=== PATIENT | male | born 1965 | race Caucasian/White ===

== ENCOUNTER → 2022-08-14 08:03 | Outpatient (CLI) | payer SELFPAY ==
[2022-08-14 08:56] LABS: Alanine Aminotransferase 35 IU/L (<50); Albumin 3.9 g/dL (3.5-5.0); Albumin Globulin Ratio 1.5 (1.0-2.8); Alkaline Phosphatase 140 U/L (38-126); Aspartate Aminotransferase 23 IU/L (17-59); BUN Creatinine Ratio 26.7 (6-22); Bilirubin Total 0.9 mg/dL (0.2-1.3); Blood Urea Nitrogen 16 mg/dL (9-20); Calcium 9.1 mg/dL (8.4-10.2); Carbon Dioxide 25 mmol/L (22-32); Chloride 94 mmol/L (98-107); Cholesterol 163 mg/dL (140-199); Estimated Glomerular Filt Rate > 60 mL/min (>60); Globulin 2.6 g/dL (1.7-4.1); Glucose 425 mg/dL (70-100); HDL Cholesterol 49 mg/dL (40-60); HEMOLYSIS < 15 (0-50); Potassium 4.7 mmol/L (3.4-5.1); Sodium 130 mmol/L (137-145); Total Protein 6.5 g/dL (6.3-8.2); Triglycerides 422 mg/dL (35-150)
[2022-08-14 10:12] LABS: Creatinine Urine Random 23.9 mg/dL
[2022-08-14 10:16] LABS: Microalbumi Creatinin Ratio Ur 37.6 ug/mg CR (<30); Microalbumin Urine Random 0.9 mg/dL (0-1.6)
[2022-08-15 03:43] LABS: Labcorp Hemoglobin (Hb) A1c >15.5 % (4.8-5.6)
== END ==
PROVIDERS: PCP Family Medicine; Referring Provider Family Medicine; Visit Provider Family Medicine
DX: E11.65 Type 2 diabetes mellitus with hyperglycemia (principal); E78.5 Hyperlipidemia, unspecified
CPT/HCPCS: 36415; 80053; 80061; 82043; 82570; 83036

== ENCOUNTER → 2023-07-02 12:25 | Outpatient (CLI) | payer SELFPAY ==
[2023-07-02 13:06] LABS: Add Manual Diff / Slide Review NO; Basophils Absolute Auto 100 /uL (0-100); Basophils Percent Auto 0.9 % (0-2); Eosinophils Absolute Auto 600 /uL (0-450); Eosinophils Percent Auto 9.2 % (2-4); Hematocrit 44.5 % (41-53); Hemoglobin 15.4 g/dL (13.5-17.5); Lymphocytes Absolute Auto 2000 /uL (1100-4500); Lymphocytes Percent Auto 29.8 % (25-40); Mean Corpuscular HGB Conc 34.5 % (30-36); Mean Corpuscular Hemoglobin 30.2 PG (26-34); Mean Corpuscular Volume 87.5 fL (80-100); Monocytes Absolute Auto 600 /uL (0-900); Monocytes Percent Auto 9.7 % (3-14); Neutrophils Absolute Auto 3300 /uL (1500-7000); Neutrophils Percent Auto 50.4 % (50-75); Platelet Count 334 X10^3/uL (150-400); Red Blood Cell Count 5.09 X10^6/uL (4.5-5.9); White Blood Cell Count 6.6 X10^3/uL (4.5-11.0)
[2023-07-02 13:36] LABS: Alanine Aminotransferase 28 IU/L (<50); Albumin 4.1 g/dL (3.5-5.0); Albumin Globulin Ratio 1.5 (1.0-2.8); Alkaline Phosphatase 67 U/L (38-126); Aspartate Aminotransferase 23 IU/L (17-59); BUN Creatinine Ratio 25.8 (6-22); Bilirubin Total 1.3 mg/dL (0.2-1.3); Blood Urea Nitrogen 17 mg/dL (9-20); Calcium 9.5 mg/dL (8.4-10.2); Carbon Dioxide 27 mmol/L (22-32); Chloride 100 mmol/L (98-107); Cholesterol 124 mg/dL (140-199); Estimated Glomerular Filt Rate > 60 mL/min (>60); Globulin 2.8 g/dL (1.7-4.1); Glucose 217 mg/dL (70-100); HDL Cholesterol 53 mg/dL (40-60); HEMOLYSIS 18 (0-50); LDL Cholesterol Calculated 35 mg/dL (<100); Lipase 199 U/L (23-300); Potassium 4.4 mmol/L (3.4-5.1); Sodium 134 mmol/L (137-145); Total Protein 6.9 g/dL (6.3-8.2); Triglycerides 179 mg/dL (35-150)
[2023-07-02 14:02] LABS: Prostate Specific Antigen Scrn 0.584 ng/mL (0.1-4.0)
[2023-07-02 16:41] LABS: Creatinine Urine Random 50.6 mg/dL
[2023-07-02 16:45] LABS: Microalbumi Creatinin Ratio Ur 25.6 ug/mg CR (<30); Microalbumin Urine Random 1.3 mg/dL (0-1.6)
== END ==
PROVIDERS: PCP Family Medicine; Referring Provider Family Medicine; Visit Provider Family Medicine
DX: R10.9 Unspecified abdominal pain (principal); R07.89 Other chest pain; K59.00 Constipation, unspecified; N40.0 Benign prostatic hyperplasia without lower urinary tract symptoms; E11.65 Type 2 diabetes mellitus with hyperglycemia; Z12.5 Encounter for screening for malignant neoplasm of prostate
CPT/HCPCS: 36415; 80053; 80061; 82043; 82570; 83690; 85025; G0103

== ENCOUNTER → 2023-07-07 07:30 | Outpatient (CLI) | payer SELFPAY ==
--- NOTE | 2023-07-07 07:37 | DI.CT.S_ITS ---
PROCEDURE: CT ABDOMEN PELVIS W CON INDICATIONS: Lt upper quad pain x 3 wks TECHNIQUE: After the administration of intravenous contrast, axial sections acquired from the lung bases to the pubic symphysis. Coronal and sagittal reformats were performed. For radiation dose reduction, the following was used: automated exposure control, adjustment of mA and/or kV according to patient size. COMPARISON: None. FINDINGS: Image quality: Diagnostic. Lower Chest: No significant findings. ABDOMEN: Liver: No solid mass. Gallbladder: No radiopaque gallstones or wall thickening. Biliary ducts: No biliary dilation. Pancreas: No ductal dilation. Spleen: Size is within normal limits. Adrenal Glands: No adrenal nodules. Kidneys and Ureters: No hydronephrosis. No solid mass. No complex renal cystic lesion which requires follow up. Stomach and Bowel: Normal colonic caliber, without significant wall thickening. Large colonic stool load. Fecal debris within the small bowel. Normal appendix. No significant diverticular disease. Peritoneum: No abnormal intraperitoneal fluid. No free air. Ventral Wall: No significant ventral hernia. Small umbilical hernia containing fat. Abdominal Nodes: No retroperitoneal or mesenteric adenopathy by size criteria. Vessels: Aorta and inferior vena cava are normal in size. PELVIS: Pelvic Organs: Unremarkable. Bladder: No bladder wall thickening, accounting for underdistention. Pelvic Nodes: No enlarged lymph nodes. Miscellaneous: Small left inguinal hernia containing fat. Bones: No aggressive osseous abnormality. Grade 1 anterolisthesis of L5 on S1 secondary to pars defects. IMPRESSION: Large colonic stool load. Fecal debris within the small-bowel, usually indicating small intestinal bacterial overgrowth versus slow transit. Grade 1 anterolisthesis of L5 on S1 secondary to pars defects. Dictated by: Josh Robin M.D. on 07/07/2023 at 9:18 Approved by: Josh Robin M.D. on 07/07/2023 at 9:21
== END ==
LOC: CT 07:32
PROVIDERS: PCP Family Medicine; Referring Provider Family Medicine; Visit Provider Family Medicine
DX: M43.17 Spondylolisthesis, lumbosacral region (principal); K40.90 Unilateral inguinal hernia, without obstruction or gangrene, not specified as recurrent; K42.9 Umbilical hernia without obstruction or gangrene; E11.65 Type 2 diabetes mellitus with hyperglycemia; R07.89 Other chest pain; R10.9 Unspecified abdominal pain; K59.00 Constipation, unspecified
CPT/HCPCS: 74177; Q9967

== ENCOUNTER 2023-10-27 09:53 | Day surgery (SDC) | payer OTHER, SELFPAY ==
[2023-10-22 12:21] VITALS: BMI 26.0
--- NOTE | 2023-10-27 | PATH_ITS ---
[facility] Accession Number: [id number] No. of containers..01 Tissue . 01 Material submitted: . flank - MULTIPLE LIPOMAS LEFT FLANK . 01 Diagnosis: SOFT TISSUE, LIPOMAS, LEFT FLANK, EXCISION: Mature adipose tissue, consistent with lipoma. [facility] 10/29/2023 1019 Local . 01 Electronically signed: . Kareen Magaña MD, Pathologist NPI- [id number] . 01 Gross description: . Received in formalin with two patient identifiers and multiple lipomas left flank, are multiple fragments of partially encapsulated yellow lobulated soft tissue aggregating to 6.6 x 4.3 x 2.0 cm. Sectioned to reveal a yellow, soft cut surface with no lesions identified. [employer] sections are submitted in A1-A2. ([id number]) /MRV 10/28/2023 1805 Local . 01 Pathologist provided ICD-10: D17.9 . 01 CPT . 149605 Specimen Comment: A courtesy copy of this report has been sent to [phone] Performed at: [address] [address], [place], [place] [id number] MD David Sweeney MD Phone: [phone]
[2023-10-27 10:22] VITALS: BP 145/93; PULSE 102; RESP 16; TEMP 36.4; O2SAT 100; BMI 26.0
--- NOTE | 2023-10-27 10:40 | PM.PREOP ---
Pre-operative Note COVID-19 COVID-19 status: Not tested Interval Note History & Physical reviewed/Exam performed by Physician: Yes Changes to H&P: No ASA Class (for procedural sedation): III
[2023-10-27] MEDS: LACTATED RINGERS 1,000 ML 42 ML IV (10:43)
[2023-10-27] MEDS: ACETAMINOPHEN 325 MG TABLET 975 MG PO (10:44)
--- NOTE | 2023-10-27 11:34 | SUR.OPER ---
Lateral on a beckham bag, head on pillow, gel axillary roll in place, bottom RIGHT leg bent with gel pad under knee to foot, upper LEFT leg straight and supported with pillows. Upper LEFT arm supported by pillows and secured over bottom RIGHT arm to padded arm board. GENITALIA FREE FROM PRESSURE, Safety belt at hip, tape over blanket lower legs. CONFIRMED BY DR. COOK
[2023-10-27] MEDS: BUPIVACAINE 0.5% (PF) 30 ML VIAL INJ (11:41)
--- NOTE | 2023-10-27 11:48 | PM.OP.1 ---
Operative Date/Time/Diagnoses Date of procedure: 10/27/23 Time of procedure: 11:48 Pre-op diagnosis: Lipomatosis Post-op diagnosis: same Procedure & Clinicians Procedure: Excisional biopsy of 5 lipomas from the left flank Same procedure as scheduled: Yes Surgeon: Rayo West Blending Machine Feeder: Zac Martin Anesthesia Type: General Operative Notes Procedure in detail: Patient was seen in the preoperative holding area and the 5 lipomas from his left flank were identified and marked. The patient was then brought to the operating room and placed on the table in the supine position. General anesthesia was induced. The patient was then positioned in the right lateral decubitus position with the left side up. We made 3 incisions ranging from 3 cm to 5 cm to reach the 5 different lipomas several of which reached down to the underlying muscle fascia. The subcutaneous adipose tissue was rather lobular and multiple fibrotic septations were encountered. The 5 identified lipomas were excised and sent together. Cautery was used for hemostasis. Additional local was injected into the deep tissue and into the muscle fascia. We then closed the 3 incisions in layers using multiple interrupted 3-0 Vicryl dermal sutures and a running 4-0 Monocryl subcuticular stitch. EBL: 10 mL Specimen: Multiple left flank lipomas Zac GREEN provided assistance with exposure, retraction and closure of incisions. Post-operative Condition: stable Disposition: PACU
[2023-10-27 12:05] VITALS: BP 126/90; PULSE 85; RESP 12; TEMP 36.4; O2SAT 97
[2023-10-27 12:11] VITALS: BP 117/85; PULSE 86; RESP 13; TEMP 36.4; O2SAT 96
[2023-10-27 12:17] VITALS: BP 107/83; PULSE 90; RESP 12; TEMP 36.3; O2SAT 96
== END 2023-10-27 12:33 | disposition home or self-care (01) ==
PROVIDERS: PCP Family Medicine; Referring Provider Surgery; Visit Provider Surgery
PROC: (CPT 21931; principal; 2023-10-27 11:15)
DX: D17.1 Benign lipomatous neoplasm of skin and subcutaneous tissue of trunk (principal)
CPT/HCPCS: 21931 ×3; J1100; J2405; J2704; J3010

== ENCOUNTER → 2024-02-17 09:53 | Outpatient (CLI) | payer OTHER, SELFPAY ==
[2024-02-17 11:31] LABS: Hemoglobin A1C% w Est Avg Glu 6.7 % (4.0-6.0)
== END ==
PROVIDERS: PCP Family Medicine; Referring Provider Family Medicine; Visit Provider Family Medicine
DX: E11.65 Type 2 diabetes mellitus with hyperglycemia (principal); D17.9 Benign lipomatous neoplasm, unspecified; R20.2 Paresthesia of skin; E11.319 Type 2 diabetes mellitus with unspecified diabetic retinopathy without macular edema; E11.43 Type 2 diabetes mellitus with diabetic autonomic (poly)neuropathy
CPT/HCPCS: 36415; 83036

== ENCOUNTER 2024-04-20 10:18 | Emergency (ER) | payer OTHER, SELFPAY ==
[2024-04-20] VITALS (17 sets, daily range): BP systolic 151–176; BP diastolic 78–114; PULSE 89–131; RESP 13–32; TEMP 36.8; O2SAT 92–100; BMI 27.1
[2024-04-20] MEDS: ONDANSETRON 4 MG/2 ML INJ IV (10:32)
--- NOTE | 2024-04-20 10:36 | EKG_ITS ---
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
[2024-04-20 10:39] LABS: Add Manual Diff / Slide Review NO; Basophils Absolute Auto 0 /uL (0-100); Basophils Percent Auto 0.2 % (0-2); Eosinophils Absolute Auto 0 /uL (0-450); Hematocrit 47.1 % (41-53); Hemoglobin 16.5 g/dL (13.5-17.5); Lymphocytes Absolute Auto 1100 /uL (1100-4500); Lymphocytes Percent Auto 8.8 % (25-40); Mean Corpuscular HGB Conc 35.1 % (30-36); Mean Corpuscular Volume 88.2 fL (80-100); Monocytes Absolute Auto 1100 /uL (0-900); Monocytes Percent Auto 8.9 % (3-14); Neutrophils Absolute Auto 10000 /uL (1500-7000); Neutrophils Percent Auto 82.1 % (50-75); Platelet Count 367 X10^3/uL (150-400); Red Blood Cell Count 5.34 X10^6/uL (4.5-5.9); Red Cell Distribution Width 13.1 % (11.6-14.8); White Blood Cell Count 12.1 X10^3/uL (4.5-11.0)
[2024-04-20 10:46] LABS: Alanine Aminotransferase 41 IU/L (<50); Albumin 5.2 g/dL (3.5-5.0); Albumin Globulin Ratio 1.6 (1.0-2.8); Alkaline Phosphatase 72 U/L (38-126); Aspartate Aminotransferase 39 IU/L (17-59); BUN Creatinine Ratio 22.9 (6-22); Bilirubin Total 1.9 mg/dL (0.2-1.3); Blood Urea Nitrogen 16 mg/dL (9-20); Calcium 9.7 mg/dL (8.4-10.2); Carbon Dioxide 25 mmol/L (22-32); Chloride 91 mmol/L (98-107); Estimated Glomerular Filt Rate > 60 mL/min (>60); Globulin 3.2 g/dL (1.7-4.1); Glucose 265 mg/dL (70-100); HEMOLYSIS < 15 (0-50); Lipase 32 U/L (23-300); Potassium 3.6 mmol/L (3.4-5.1); Sodium 133 mmol/L (137-145); Total Protein 8.4 g/dL (6.3-8.2)
--- NOTE | 2024-04-20 10:59 | DI.CT.S_ITS ---
PROCEDURE: CT ABDOMEN PELVIS W CON INDICATIONS: IV contrast only, abdominal pain TECHNIQUE: After the administration of intravenous contrast, axial sections acquired from the lung bases to the pubic symphysis. Coronal and sagittal reformats were performed. For radiation dose reduction, the following was used: automated exposure control, adjustment of mA and/or kV according to patient size. COMPARISON: [facility], CT, CT ABDOMEN PELVIS W CON, 07/07/2023, 8:45. FINDINGS: Image quality: Diagnostic. Lower Chest: No significant findings. ABDOMEN: Liver: No solid mass. Gallbladder: No radiopaque gallstones or wall thickening. Biliary ducts: No biliary dilation. Pancreas: No ductal dilation. Spleen: Size is within normal limits. Adrenal Glands: No adrenal nodules. Kidneys and Ureters: No hydronephrosis. No solid mass. No complex renal cystic lesion which requires follow up. Stomach and Bowel: Normal colonic caliber, without significant wall thickening. Diverticulosis without evidence of acute diverticulitis. Normal appendix. Peritoneum: No abnormal intraperitoneal fluid. No free air. Ventral Wall: No significant ventral hernia. Abdominal Nodes: No retroperitoneal or mesenteric adenopathy by size criteria. Vessels: Aorta and inferior vena cava are normal in size. PELVIS: Pelvic Organs: Prostatomegaly.. Bladder: No bladder wall thickening, accounting for underdistention. Pelvic Nodes: No enlarged lymph nodes. Miscellaneous: Small fat containing left inguinal hernia. Bones: No aggressive osseous abnormality. Bilateral L5 pars defects, trace anterolisthesis of L5 on S1, bilateral foraminal narrowing with a degree of bilateral foraminal L5 nerve root impingement. IMPRESSION: 1. No acute abdominal process. 2. Diverticulosis without evidence of acute diverticulitis. 3. Prostatomegaly. Dictated by: Noman Zepeda M.D. on 04/20/2024 at 11:56 Approved by: Noman Zepeda M.D. on 04/20/2024 at 12:05
--- NOTE | 2024-04-20 11:09 | ED.NAVMDI ---
HPI - Nausea/Vomiting/Diarrhea General Chief complaint: Nausea/Vomiting/Diarrhea Stated complaint: Hasn't ate for 3-4 days, throwing up, dry heaving Time Seen by Provider: 04/20/24 10:55 Source: patient Mode of arrival: Ambulatory History of Present Illness HPI Narrative: Patient here for ongoing chronic abdominal pain nausea vomiting diarrhea for many months. Patient just saw his provider Dr. Maravilla April 07. Please see his notes regarding extensive discussion with patient regarding his multiple problems symptoms complaints. He has appointment today at 5:30 p.m. with for MRI. Mother drove patient today. Patient is very anxious. No fever chills. No cough cold or congestion. No known sick contacts. Related Data Previous Rx's Medication Instructions Recorded atorvastatin 40 mg tablet 40 mg PO DAILY cholesterol #90 tabs 11/25/23 blood sugar diagnostic #100 ea 11/25/23 blood-glucose meter #1 ea 11/25/23 glipizide 10 mg tablet, extended 10 mg PO DAILY #90 tabs 11/25/23 release 24 hr insulin glargine-yfgn 100 unit/mL 20 unit (0.2 mL) SUBCUT DAILY #15 11/25/23 (3 mL) subcutaneous pen (Semglee mL (insulin glargine-yfgn) Pen) insulin syr/ndl U100 half talia 0.3 #100 ea 11/25/23 mL 29 gauge x 1/2 lancets 28 gauge #100 ea 11/25/23 lisinopril 2.5 mg tablet 2.5 mg PO DAILY #90 tabs 11/25/23 metformin 1,000 mg tablet 1,000 mg PO BID #180 tabs 11/25/23 pen needle, diabetic 29 gauge x #100 ea 11/25/23 1/2 (Comfort EZ Pen [place]) pregabalin 150 mg capsule (Lyrica) 150 mg PO BID #60 caps 02/15/24 tramadol 50 mg tablet 50 mg PO Q6H PRN pain #120 tabs 02/15/24 pioglitazone 15 mg tablet 15 mg PO DAILY for diabetes 02/29/24 mellitus #90 tabs ondansetron 4 mg disintegrating 4 mg PO Q8H PRN nausea and 04/20/24 tablet vomiting #20 tabs Allergies Allergy/AdvReac Type Severity Reaction Status Date / Time No Known Drug Allergies Allergy Verified 04/20/24 10:28 Review of Systems Review of Systems Narrative: GENERAL: Negative chills, fatigue, malaise, fever, sweats. HEENT: Negative sinus pain, ear pain, sore throat RESPIRATORY: Negative dyspnea, cough CARDIOVASCULAR: Negative chest pain, palpitations GASTROINTESTINAL: Positive nausea, vomiting, abdominal pain : Negative dysuria, frequency, hematuria MUSCULOSKELETAL: Negative muscle or bony pain SKIN: Negative rash, skin lesions NEUROLOGIC: Negative weakness, numbness ROS Unobtainable: All systems reviewed & are unremarkable except as noted in HPI and below Patient History Medical History (Updated 04/20/24 @ 13:57 by Meet Bosch MD) Diabetic retinopathy Peripheral autonomic neuropathy due to DM Hyperlipidemia Type 2 diabetes mellitus with hyperglycemia, without long-term current use of insulin Social History household members: none Smoking Status: Former smoker alcohol intake: never Smoking Status: Former smoker Exam Narrative Exam Narrative: GENERAL: in no distress, not toxic not dyspneic HEAD: Normocephalic. EYES: Pupils equal round ENT: Mucous membranes moist. NECK: Trachea midline. CARDIOVASCULAR: Regular rate and rhythm RESPIRATORY: Clear to auscultation. Breath sounds equal bilaterally. No wheezes, rales, or rhonchi. GASTROINTESTINAL: Abdomen soft, non-tender with patient talking very rapidly exam of abdomen is soft flat nontender no peritoneal signs no guarding or rebound. Leans forward during exam there is no CVA tenderness. EXTREMITIES: No gross deformities. BACK: No flank tenderness. NEURO: AOx4. SKIN: Warm and dry PSYCH: Pressured rapid speech, needs redirecting during conversation, is anxious, is cooperative Initial Vital Signs Initial Vital Signs: Vital Signs Temperature 98.3 F 04/20/24 10:19 Pulse Rate 114 H 04/20/24 10:19 Respiratory Rate 16 04/20/24 10:19 Blood Pressure 176/104 H 04/20/24 10:19 Pulse Oximetry 98 04/20/24 10:19 Oxygen Delivery Method Room Air 04/20/24 10:19 Course Orders Ordered: ED Orders 04/20/24 10:25 Complete Blood Count AUTO DIFF Stat Comprehensive Metabolic Panel Stat Hemoglobin A1C% w Est Avg Glu Stat Ketones (Beta-Hydroxybutyrate) Stat Lipase Stat 04/20/24 10:27 EKG-12 Lead Stat 04/20/24 10:59 CT abdomen pelvis w con Stat 04/20/24 11:03 Covid-19 + FLU A/B + RSV - PCR Stat 04/20/24 13:18 Ketones (Beta-Hydroxybutyrate) Stat 04/20/24 14:59 CMP [Comprehensive Metabolic Panel] Stat 04/20/24 15:40 Urine Microscopic Stat Ondansetron HCl (Ondansetron 4 Mg/2 Ml Inj) 4 mg IV NOW PRN PRN Reason: Nausea And Vomiting Last Admin: 04/20/24 10:32 Dose: 4 mg Documented By: AMPARO Ondansetron HCl (Ondansetron 4 Mg Odt) 4 mg PO NOW PRN PRN Reason: Nausea And Vomiting Discontinued Medications Sodium Chloride (Normal Saline 0.9%) 1,000 mls @ 1,000 mls/hr IV BOLUS ONE Stop: 04/20/24 11:57 Last Infusion: 04/20/24 13:05 Dose: Infused Documented By: Admin: 04/20/24 11:24 Dose: 1,000 mls/hr Documented By: SUYAPA Sodium Chloride (Normal Saline 0.9%) 1,000 mls @ 1,000 mls/hr IV BOLUS ONE Stop: 04/20/24 12:51 Last Infusion: 04/20/24 13:20 Dose: Infused Documented By: Admin: 04/20/24 13:08 Dose: 1,000 mls/hr Documented By: SUYAPA Morphine Sulfate (Morphine 4 Mg/Ml Inj) 4 mg IV NOW ONE Stop: 04/20/24 11:09 Last Admin: 04/20/24 11:22 Dose: 4 mg Documented By: SUYAPA Morphine Sulfate (Morphine 4 Mg/Ml Inj) 4 mg IV NOW ONE Stop: 04/20/24 12:55 Last Admin: 04/20/24 13:07 Dose: 4 mg Documented By: SUYAPA Vital Signs Vital signs: Vital Signs - 8 hr 04/20/24 10:19 04/20/24 10:23 04/20/24 10:24 Temperature 98.3 F Pulse Rate 114 H 119 H 116 H Respiratory Rate 16 Blood Pressure 176/104 H Pulse Oximetry 98 98 99 Oxygen Delivery Method Room Air 04/20/24 10:24 04/20/24 10:30 04/20/24 10:30 Temperature Pulse Rate 112 H Respiratory Rate 16 Blood Pressure 176/104 H 163/96 H Pulse Oximetry 99 Oxygen Delivery Method 04/20/24 11:00 04/20/24 11:01 04/20/24 11:01 Temperature Pulse Rate 118 H 131 H Respiratory Rate 32 H 32 H Blood Pressure 157/114 H Pulse Oximetry 98 96 Oxygen Delivery Method 04/20/24 11:42 04/20/24 12:00 04/20/24 12:30 Temperature Pulse Rate 101 H 103 H 98 H Respiratory Rate 31 H 25 H Blood Pressure Pulse Oximetry 100 99 Oxygen Delivery Method 04/20/24 13:00 04/20/24 13:30 04/20/24 14:00 Temperature Pulse Rate 91 H 109 H 101 H Respiratory Rate 30 H 20 22 Blood Pressure Pulse Oximetry 92 99 99 Oxygen Delivery Method 04/20/24 14:30 04/20/24 14:30 04/20/24 15:00 Temperature Pulse Rate 106 H 96 H Respiratory Rate Blood Pressure 151/78 H Pulse Oximetry 99 100 Oxygen Delivery Method Room Air 04/20/24 15:00 04/20/24 15:30 04/20/24 15:30 Temperature Pulse Rate 106 H Respiratory Rate 13 Blood Pressure 167/88 H 172/82 H Pulse Oximetry 98 Oxygen Delivery Method 04/20/24 16:00 04/20/24 16:00 04/20/24 16:30 Temperature Pulse Rate 89 91 H Respiratory Rate Blood Pressure 161/86 H Pulse Oximetry 100 99 Oxygen Delivery Method 04/20/24 16:30 Temperature Pulse Rate Respiratory Rate Blood Pressure 167/94 H Pulse Oximetry Oxygen Delivery Method MDM - Nausea/Vomiting/Diarrhea Lab Data 04/20/24 10:25 04/20/24 14:59 Labs: Lab Results 04/20/24 04/20/24 04/20/24 Range/Units 10:25 11:03 13:18 WBC 12.1 H (4.5-11.0) X10^3/uL RBC 5.34 (4.5-5.9) X10^6/uL Hgb 16.5 (13.5-17.5) g/dL Hct 47.1 (41-53) % MCV 88.2 (80-100) fL MCH 31.0 (26-34) PG MCHC 35.1 (30-36) % RDW 13.1 (11.6-14.8) % Plt Count 367 (150-400) X10^3/uL Neut % (Auto) 82.1 H (50-75) % Lymph % (Auto) 8.8 L (25-40) % [place] % (Auto) 8.9 (3-14) % Eos % (Auto) 0.0 L (2-4) % Baso % (Auto) 0.2 (0-2) % Neut # (Auto) 99239 H (9348-3407) /uL Lymph # (Auto) 1100 (3332-2982) /uL [place] # (Auto) 1100 H (0-900) /uL Eos # (Auto) 0 (0-450) /uL Baso # (Auto) 0 (0-100) /uL Sodium 133 L (137-145) mmol/L Potassium 3.6 (3.4-5.1) mmol/L Chloride 91 L (98-107) mmol/L Carbon Dioxide 25 (22-32) mmol/L BUN 16 (9-20) mg/dL Creatinine 0.70 (0.66-1.25) mg/dL Estimated GFR > 60 (>60) mL/min BUN/Creatinine Ratio 22.9 H (6-22) Glucose 265 H (70-100) mg/dL Hemoglobin A1c 6.8 H (4.0-6.0) % Calcium 9.7 (8.4-10.2) mg/dL Total Bilirubin 1.9 H (0.2-1.3) mg/dL AST 39 (17-59) IU/L ALT 41 (<50) IU/L Alkaline Phosphatase 72 (38-126) U/L Total Protein 8.4 H (6.3-8.2) g/dL Albumin 5.2 H (3.5-5.0) g/dL Globulin 3.2 (1.7-4.1) g/dL Albumin/Globulin Ratio 1.6 (1.0-2.8) Lipase 32 (23-300) U/L Urine RBC (0-5/HPF) Urine WBC (0-5/HPF) Ur Squamous Epith Cells (0-5/HPF) Urine Bacteria (None) Ur Culture Indicated? Vol Urine Centrifuged Ketones 2.05 H 1.25 H (<0.27) mmol/L SARS-CoV-2 (PCR) Negative (Negative) Influenza A (RT-PCR) Flu a negative (NEGATIVE) Influenza B (RT-PCR) Flu b negative (NEGATIVE) RSV (PCR) Negative (Negative) 04/20/24 04/20/24 Range/Units 14:59 15:40 WBC (4.5-11.0) X10^3/uL RBC (4.5-5.9) X10^6/uL Hgb (13.5-17.5) g/dL Hct (41-53) % MCV (80-100) fL MCH (26-34) PG MCHC (30-36) % RDW (11.6-14.8) % Plt Count (150-400) X10^3/uL Neut % (Auto) (50-75) % Lymph % (Auto) (25-40) % [place] % (Auto) (3-14) % Eos % (Auto) (2-4) % Baso % (Auto) (0-2) % Neut # (Auto) (3333-7206) /uL Lymph # (Auto) (2345-9692) /uL [place] # (Auto) (0-900) /uL Eos # (Auto) (0-450) /uL Baso # (Auto) (0-100) /uL Sodium 132 L (137-145) mmol/L Potassium 3.9 (3.4-5.1) mmol/L Chloride 99 (98-107) mmol/L Carbon Dioxide 26 (22-32) mmol/L BUN 14 (9-20) mg/dL Creatinine 0.67 (0.66-1.25) mg/dL Estimated GFR > 60 (>60) mL/min BUN/Creatinine Ratio 20.9 (6-22) Glucose 189 H (70-100) mg/dL Hemoglobin A1c (4.0-6.0) % Calcium 8.8 (8.4-10.2) mg/dL Total Bilirubin 1.5 H (0.2-1.3) mg/dL AST 21 (17-59) IU/L ALT 20 (<50) IU/L Alkaline Phosphatase 60 (38-126) U/L Total Protein 6.7 (6.3-8.2) g/dL Albumin 4.1 (3.5-5.0) g/dL Globulin 2.6 (1.7-4.1) g/dL Albumin/Globulin Ratio 1.6 (1.0-2.8) Lipase (23-300) U/L Urine RBC None seen (0-5/HPF) Urine WBC None seen (0-5/HPF) Ur Squamous Epith Cells None seen (0-5/HPF) Urine Bacteria Occasional (0-1) (None) Ur Culture Indicated? Cult not indicated Vol Urine Centrifuged 10ml (spun) Ketones (<0.27) mmol/L SARS-CoV-2 (PCR) (Negative) Influenza A (RT-PCR) (NEGATIVE) Influenza B (RT-PCR) (NEGATIVE) RSV (PCR) (Negative) Point of Care Testing Glucose POC 274 Urine Dip Bedside Urine Glucose Negative Bedside Urine Bilirubin - Negative Bedside Urine Ketone +++ 80 Urine Specific [place] 1.005 Bedside Urine Occult Blood - Negative Bedside Urine pH 7.5 Bedside Urine Protein +/- 15 Bedside Urine Urobilinogen - Negative Bedside Urine Nitrite - Negative Bedside Urine Leukocytes - Negative Esterase Imaging Data CT scan - abdomen/pelvis: Radiologist's Impression: [address] [address] [address] Scan Report Signed Patient: Riky Cross II MR#: [id number] : 1965 Acct:[id number] Age/Sex: 58 / M Date of Service: 04/20/24 Loc: ED Accession Number: [id number] Procedure: CT abdomen pelvis w con Ordering Provider: Meet Bosch MD PROCEDURE: CT ABDOMEN PELVIS W CON INDICATIONS: IV contrast only, abdominal pain TECHNIQUE: After the administration of intravenous contrast, axial sections acquired from the lung bases to the pubic symphysis. Coronal and sagittal reformats were performed. For radiation dose reduction, the following was used: automated exposure control, adjustment of mA and/or kV according to patient size. COMPARISON: [facility], CT, CT ABDOMEN PELVIS W CON, 07/07/2023, 8:45. FINDINGS: Image quality: Diagnostic. Lower Chest: No significant findings. ABDOMEN: Liver: No solid mass. Gallbladder: No radiopaque gallstones or wall thickening. Biliary ducts: No biliary dilation. Pancreas: No ductal dilation. Spleen: Size is within normal limits. Adrenal Glands: No adrenal nodules. Kidneys and Ureters: No hydronephrosis. No solid mass. No complex renal cystic lesion which requires follow up. Stomach and Bowel: Normal colonic caliber, without significant wall thickening. Diverticulosis without evidence of acute diverticulitis. Normal appendix. Peritoneum: No abnormal intraperitoneal fluid. No free air. Ventral Wall: No significant ventral hernia. Abdominal Nodes: No retroperitoneal or mesenteric adenopathy by size criteria. Vessels: Aorta and inferior vena cava are normal in size. PELVIS: Pelvic Organs: Prostatomegaly.. Bladder: No bladder wall thickening, accounting for underdistention. Pelvic Nodes: No enlarged lymph nodes. Miscellaneous: Small fat containing left inguinal hernia. Bones: No aggressive osseous abnormality. Bilateral L5 pars defects, trace anterolisthesis of L5 on S1, bilateral foraminal narrowing with a degree of bilateral foraminal L5 nerve root impingement. IMPRESSION: 1. No acute abdominal process. 2. Diverticulosis without evidence of acute diverticulitis. 3. Prostatomegaly. Dictated by: Noman Zpeeda M.D. on 04/20/2024 at 11:56 Approved by: Noman Zepeda M.D. on 04/20/2024 at 12:05 [facility] Narrative Medical decision making narrative: Patient here for ongoing chronic abdominal pain nausea vomiting diarrhea for many months. Patient just saw his provider Dr. Maravilla April 07. Please see his notes regarding extensive discussion with patient regarding his multiple problems symptoms complaints. He has appointment today at 5:30 p.m. with for MRI. Mother drove patient today. Patient is very anxious. No fever chills. No cough cold or congestion. No known sick contacts. After history and exam CBC CMP lipase respiratory panel CT abdomen pelvis normal saline morphine Zofran, EKG ordered, no troponin is patient has no chest pain or dyspnea. [facility] Medical records reviewed: Primary care office visit April 07, 2024 Differential considered: Includes but not limited to pancreatitis bowel obstruction colitis cholelithiasis IBS anxiety DKA dehydration Lab Test results independently reviewed as above. Pertinent findings: WBC 12.1 hemoglobin 16.5 sodium 133 potassium 3.6 BUN 16 creatinine 0.7 AST 239 ALT 41 total bilirubin 1.9 lipase 32 Hemoglobin A1c 6.8 glucose 265 Ketones 2.05 repeat ketones 1.25 Repeat CMP sodium 132 potassium 3.9 bicarb 26 BUN 14 creatinine 0.67 Anion gap 7.0 at time of discharge. Independently reviewed EKG sinus tachycardia rate 102 otherwise normal EKG Imaging studies independently reviewed: CT abdomen pelvis no acute finding Consultations: None indicated at this time Treatments: Morphine Zofran normal saline Re-evaluations: 5:00 p.m. Patient feeling much better. 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 Reviewed results with patient but they are reassuring at this time. Patient has outpatient MRI today at 5:30 p.m.. Return precautions reviewed. He desires discharge home. Patient up and walking without difficulty. No ataxia. Pain-free. Discussion: Appropriate for discharge home exam is reassuring. Return precautions reviewed with patient. These symptoms have been going on for many months. Today's results are reassuring. He does have a emergency detail driver. He desires discharge home. Not toxic at discharge. Patient feeling much better with IV hydration pain control and nausea control. He has MRI at 5:30 p.m. and 30 minutes. Diagnosis: Chronic abdominal pain, recurrent vomiting Discharge Plan Departure Patient Disposition: Home Clinical Impression: Vomiting and diarrhea, Abdominal pain, recurrent Instructions: DI for Abdominal Pain-Adult, DI for Vomiting -- Adult Activity Restrictions/Additional Instructions: Your exam and laboratory studies imaging studies are reassuring. Please get your MRI done today as scheduled at 5:30 p.m.. See your family doctor within a week for re-evaluation. No changes to your medications are indicated at this time. Your laboratory studies imaging studies are reassuring. No driving or operating machinery today as you have been given pain medication. Return if worse if any questions or concerns Prescriptions: New ondansetron 4 mg tablet,disintegrating 4 mg PO Q8H PRN (Reason: nausea and vomiting) Qty: 20 0RF No Action (DME) pen needle, diabetic [Comfort EZ Pen [place]] 29 gauge x 1/2 needle See Rx Instructions .Route Qty: 100 11RF Rx Instructions: use to administer insulin up to 4 times a day metformin 1,000 mg tablet 1,000 mg PO BID Qty: 180 1RF lisinopril 2.5 mg tablet 2.5 mg PO DAILY Qty: 90 3RF (DME) lancets 28 gauge misc See Rx Instructions .ROUTE .MEDSUPPLY Qty: 100 3RF Rx Instructions: As directed, once daily as neededd (DME) insulin syr/ndl U100 half talia 0.3 mL 29 gauge x 1/2 syringe See Rx Instructions .ROUTE .MEDSUPPLY Qty: 100 3RF Rx Instructions: inject insulin daily, As directed insulin glargine-yfgn [Semglee(insulin glarg-yfgn)Pen] 100 unit/mL (3 mL) insulin pen 20 unit SUBCUT DAILY Qty: 15 3RF Rx Instructions: 20 units nightly glipizide 10 mg tablet extended release 24hr 10 mg PO DAILY Qty: 90 3RF (DME) blood-glucose meter Misc See Rx Instructions .ROUTE .MEDSUPPLY Qty: 1 0RF Rx Instructions: As directed, once daily as needed (DME) Advocate Test Strips Strip See Rx Instructions .ROUTE .MEDSUPPLY Qty: 100 3RF Rx Instructions: As directed, once daily as needed atorvastatin 40 mg tablet 40 mg PO DAILY Qty: 90 3RF pioglitazone 15 mg tablet 15 mg PO DAILY Qty: 90 3RF tramadol 50 mg tablet 50 mg PO Q6H PRN (Reason: pain) Qty: 120 5RF Rx Instructions: to last 30 days pregabalin [Lyrica] 150 mg capsule 150 mg PO BID Qty: 60 5RF Referrals: Andrés Maravilla DO [Primary Care Provider] - Stand Alone Forms: Patient Portal/API/Survey
[2024-04-20 11:15] LABS: Hemoglobin A1C% w Est Avg Glu 6.8 % (4.0-6.0)
[2024-04-20 11:19] LABS: Ketones (Beta-Hydroxybutyrate) 2.05 mmol/L (<0.27)
[2024-04-20] MEDS: MORPHINE 4 MG/ML INJ IV ×2 (11:22→13:07)
[2024-04-20] MEDS: SODIUM CHLORIDE 0.9% 1,000 ML 1000 ML IV ×2 (11:24→13:08)
[2024-04-20 11:45] LABS: COVID-19 CEPHEID 4-PLEX PCR Negative (Negative); Influenza A - CEPHEID Flu A NEGATIVE (NEGATIVE); Influenza B - CEPHEID Flu B NEGATIVE (NEGATIVE); Respiratory Syncytial Virus Negative (Negative)
[2024-04-20 14:26] LABS: Ketones (Beta-Hydroxybutyrate) 1.25 mmol/L (<0.27)
--- NOTE | 2024-04-20 14:32 | PC.NURSE ---
Patient here in department for n/v for four days, patient also reports that he is very concerned about several lipomas that he has. He has been to see his PCP who reports they are nothing of concern, Dr West removed several of his lipomas and also agreed that they are benign. Patient is reports that he has pain in the areas with lipomas, Dr Bosch ordered analgesics see MAY. Patient states that his pain has remained the same. Patient is very anxious. outpatient MRI scheduled for 1729 today.
[2024-04-20 15:20] LABS: Alanine Aminotransferase 20 IU/L (<50); Albumin 4.1 g/dL (3.5-5.0); Albumin Globulin Ratio 1.6 (1.0-2.8); Alkaline Phosphatase 60 U/L (38-126); Aspartate Aminotransferase 21 IU/L (17-59); BUN Creatinine Ratio 20.9 (6-22); Bilirubin Total 1.5 mg/dL (0.2-1.3); Blood Urea Nitrogen 14 mg/dL (9-20); Calcium 8.8 mg/dL (8.4-10.2); Carbon Dioxide 26 mmol/L (22-32); Chloride 99 mmol/L (98-107); Estimated Glomerular Filt Rate > 60 mL/min (>60); Globulin 2.6 g/dL (1.7-4.1); Glucose 189 mg/dL (70-100); HEMOLYSIS < 15 (0-50); Potassium 3.9 mmol/L (3.4-5.1); Sodium 132 mmol/L (137-145); Total Protein 6.7 g/dL (6.3-8.2)
[2024-04-20 15:54] LABS: Urine Volume 10mL (spun)
[2024-04-20 15:56] LABS: Bacteria Urine Occasional (0-1); Culture Indicated Urine Cult Not Indicated; RBC Urine None Seen (0-5/HPF); Squamous Epithelial Cell Urine None Seen (0-5/HPF); WBC Urine None Seen (0-5/HPF)
== END 2024-04-20 17:01 | disposition home or self-care (01) ==
PROVIDERS: Emergency Provider Emergency Medicine; PCP Family Medicine
DX: R11.2 Nausea with vomiting, unspecified (principal); R10.9 Unspecified abdominal pain; R19.7 Diarrhea, unspecified; E88.2 Lipomatosis, not elsewhere classified
CPT/HCPCS: 0241U; 36415; 74177; 74183; 80053; 81003; 81015; 82009; 83036; 83690; 85025; 93005; 96361; 96374; 96375; 96376; 99284; A9579; J2270; J2405; Q9967

== ENCOUNTER → 2024-04-20 17:01 | Outpatient (CLI) | payer OTHER, SELFPAY ==
--- NOTE | 2024-04-20 17:03 | DI.MRI.S_ITS ---
PROCEDURE: MR ABDOMEN WO/W CON INDICATIONS: abd pain, nerve pain TECHNIQUE: Coronal HASTE, axial 2D FLASH in- and [id number]; axial breath-hold T2 FSE. Dynamic axial VIBE during the administration of contrast; post-contrast coronal VIBE or 2D FLASH with fat saturation from the hepatic dome to the iliac crests. Optional diffusion weighted imaging and ADC may be performed. COMPARISON: [facility], CT, CT ABDOMEN PELVIS W CON, 04/20/2024, 11:29. FINDINGS: Image quality: Diagnostic. Lung bases: Unremarkable. Liver: Normal size and signal. Smooth margin. No mass. Gallbladder: No gallstones or wall thickening. Biliary ducts: No biliary dilation. Pancreas: Classic pancreatic ductal anatomy. No ductal dilatation. Diminutive pancreas. No suspicious mass. Spleen: Size is within normal limits. Adrenal Glands: No adrenal nodules. Kidneys and Ureters: Symmetric enhancement. No nephrolithiasis or hydronephrosis. No hydroureter. No cystic or solid mass requiring follow-up. Stomach and Bowel: Stomach and visible bowel loops are within normal limits. Normal appendix partially seen. Peritoneum: No suspicious enhancing mass. No significant suspicious adipose collection. No free fluid or fluid collections. Ventral Wall: No hernia. No visible enhancing subcutaneous masses. Abdominal Nodes: No retroperitoneal or mesenteric adenopathy by size criteria. Vessels: Aorta and inferior vena cava are normal in size. Bones: No aggressive osseous abnormality. Occasional vertebral body hemangiomas. IMPRESSION: No acute process or explanation for abdominal pain. Dictated by: Jenae Tian M.D. on 04/21/2024 at 12:03 Approved by: Jenae Tian M.D. on 04/21/2024 at 12:10
== END ==
PROVIDERS: PCP Family Medicine; Referring Provider Family Medicine; Visit Provider Family Medicine
DX: E88.2 Lipomatosis, not elsewhere classified (principal); R10.9 Unspecified abdominal pain
CPT/HCPCS: 74183; A9579

== ENCOUNTER 2024-04-22 13:21 | Emergency (ER) | payer OTHER, SELFPAY ==
[2024-04-22] VITALS (11 sets, daily range): BP systolic 155–173; BP diastolic 78–100; PULSE 64–96; RESP 18; TEMP 36.5; O2SAT 97–100; BMI 27.1
[2024-04-22] MEDS: SODIUM CHLORIDE 0.9% 1,000 ML 1000 ML IV ×2 (14:26→15:47)
[2024-04-22] MEDS: ONDANSETRON 4 MG/2 ML INJ IV (14:27)
[2024-04-22] MEDS: PANTOPRAZOLE 40 MG VIAL IV (14:27)
[2024-04-22 14:40] LABS: Add Manual Diff / Slide Review NO; Basophils Absolute Auto 0 /uL (0-100); Basophils Percent Auto 0.2 % (0-2); Eosinophils Absolute Auto 0 /uL (0-450); Eosinophils Percent Auto 0.2 % (2-4); Hematocrit 47.9 % (41-53); Hemoglobin 16.8 g/dL (13.5-17.5); Lymphocytes Absolute Auto 1700 /uL (1100-4500); Mean Corpuscular Hemoglobin 30.8 PG (26-34); Mean Corpuscular Volume 88.1 fL (80-100); Monocytes Absolute Auto 900 /uL (0-900); Monocytes Percent Auto 8.2 % (3-14); Neutrophils Absolute Auto 8500 /uL (1500-7000); Neutrophils Percent Auto 76.4 % (50-75); Platelet Count 346 X10^3/uL (150-400); Red Blood Cell Count 5.44 X10^6/uL (4.5-5.9); Red Cell Distribution Width 13.1 % (11.6-14.8); White Blood Cell Count 11.2 X10^3/uL (4.5-11.0)
[2024-04-22 14:43] LABS: Alanine Aminotransferase 23 IU/L (<50); Albumin 4.5 g/dL (3.5-5.0); Albumin Globulin Ratio 1.7 (1.0-2.8); Alkaline Phosphatase 65 U/L (38-126); Aspartate Aminotransferase 28 IU/L (17-59); BUN Creatinine Ratio 24.6 (6-22); Bilirubin Total 2.3 mg/dL (0.2-1.3); Blood Urea Nitrogen 15 mg/dL (9-20); Calcium 9.1 mg/dL (8.4-10.2); Carbon Dioxide 25 mmol/L (22-32); Chloride 95 mmol/L (98-107); Estimated Glomerular Filt Rate > 60 mL/min (>60); Globulin 2.7 g/dL (1.7-4.1); Glucose 148 mg/dL (70-100); HEMOLYSIS 23 (0-50); Lactate (Lactic Acid) 1.6 mmol/L (0.7-2.1); Potassium 3.3 mmol/L (3.4-5.1); Sodium 132 mmol/L (137-145); Total Protein 7.2 g/dL (6.3-8.2)
--- NOTE | 2024-04-22 15:29 | ED_ITS ---
HPI - Nausea/Vomiting/Diarrhea General Chief complaint: Nausea/Vomiting/Diarrhea Stated complaint: Dry heaving still, vomiting Time Seen by Provider: 04/22/24 14:27 Source: patient Mode of arrival: Ambulatory History of Present Illness HPI Narrative: Patient is a 58-year-old male history of poorly-controlled diabetes neuropathy chronic pain chronic abdominal pain previous lipomas presenting to day with nausea vomiting abdominal pain. He was actually seen evaluated here 04/20/2024 he had blood work and an abdominal CT, CT did not show any significant abnormality apparently he apparently also got an abdominal MRI this week which did not show any abnormality or explanation for abdominal pain. He presents today with ongoing nausea vomiting he says he was dry heaving a lot last night despite nausea medication. He says he has not eat had anything to eat or drink in 4-5 days. He is having hard stool. He is extremely concerned about a lipomas which he feels like continue to pop off follow up with his body. Has a burning sensation around his periumbilical area. He has no fever or chills Related Data Previous Rx's Medication Instructions Recorded atorvastatin 40 mg tablet 40 mg PO DAILY cholesterol #90 tabs 11/25/23 blood sugar diagnostic #100 ea 11/25/23 blood-glucose meter #1 ea 11/25/23 glipizide 10 mg tablet, extended 10 mg PO DAILY #90 tabs 11/25/23 release 24 hr insulin glargine-yfgn 100 unit/mL 20 unit (0.2 mL) SUBCUT DAILY #15 11/25/23 (3 mL) subcutaneous pen (Semglee mL (insulin glargine-yfgn) Pen) insulin syr/ndl U100 half talia 0.3 #100 ea 11/25/23 mL 29 gauge x 1/2 lancets 28 gauge #100 ea 11/25/23 lisinopril 2.5 mg tablet 2.5 mg PO DAILY #90 tabs 11/25/23 metformin 1,000 mg tablet 1,000 mg PO BID #180 tabs 11/25/23 pen needle, diabetic 29 gauge x #100 ea 11/25/23 1 (Comfort EZ Pen [place]) pregabalin 150 mg capsule (Lyrica) 150 mg PO BID #60 caps 02/15/24 tramadol 50 mg tablet 50 mg PO Q6H PRN pain #120 tabs 02/15/24 pioglitazone 15 mg tablet 15 mg PO DAILY for diabetes 02/29/24 mellitus #90 tabs ondansetron 4 mg disintegrating 4 mg PO Q8H PRN nausea and 04/20/24 tablet vomiting #20 tabs metoclopramide HCl 10 mg tablet 10 mg PO Q6H PRN nausea and 04/22/24 (Reglan) vomiting #20 tabs Allergies Allergy/AdvReac Type Severity Reaction Status Date / Time No Known Drug Allergies Allergy Verified 04/20/24 10:28 Patient History Medical History Diabetic retinopathy Peripheral autonomic neuropathy due to DM Hyperlipidemia Type 2 diabetes mellitus with hyperglycemia, without long-term current use of insulin Social History household members: none Smoking Status: Former smoker alcohol intake: never Smoking Status: Former smoker Exam Initial Vital Signs Initial Vital Signs: Vital Signs Temperature 97.7 F 04/22/24 13:35 Pulse Rate 92 H 04/22/24 13:35 Respiratory Rate 18 04/22/24 13:35 Blood Pressure 173/100 H 04/22/24 13:35 Pulse Oximetry 100 04/22/24 13:35 Oxygen Delivery Method Room Air 04/22/24 13:35 GENERAL: Alert 58-year-old male HEENT: Head atraumatic,EOMI, pupils reactive, face symmetric, moistmucous membranes CARDIOVASCULAR: Regular rate and rhythm without murmurs, rubs or gallops. RESPIRATORY: Breath sounds equal bilaterally, no wheezes rales or rhonchi. ABDOMEN: Soft, nontender. Normoactive bowel sounds all 4 quadrants. No guarding or rebound. EXTREMITIES: Normal range of motion, no clubbing or edema. Neurovascularly intact NEUROLOGICAL: Alert and oriented x4.Normal gait and speech. Cranial nerves II through XII grossly intact. SKIN: Warm, dry, no laceration, no petechiae, no rashes or lesions. He does have movable palpable lipomas on the right ribcage Course Orders Ordered: ED Orders 04/22/24 13:49 CBC Auto Diff [Complete Blood Count AUTO DIFF] Stat CMP [Comprehensive Metabolic Panel] Stat Lactate (Lactic Acid) Stat Lipase Stat Discontinued Medications Hydromorphone HCl (Hydromorphone 0.5 Mg Inj) 0.5 mg IV NOW ONE Stop: 04/22/24 15:42 Last Admin: 04/22/24 15:48 Dose: 0.5 mg Documented By: QUITA Sodium Chloride (Normal Saline 0.9%) 1,000 mls @ 1,000 mls/hr IV BOLUS ONE Stop: 04/22/24 15:19 Last Infusion: 04/22/24 15:41 Dose: Infused Documented By: Admin: 04/22/24 14:26 Dose: 1,000 mls/hr Documented By: QUITA Sodium Chloride (Normal Saline 0.9%) 1,000 mls @ 1,000 mls/hr IV BOLUS ONE Stop: 04/22/24 16:40 Last Infusion: 04/22/24 17:00 Dose: Infused Documented By: Admin: 04/22/24 15:47 Dose: 1,000 mls/hr Documented By: QUITA Metoclopramide HCl (Metoclopramide 10 Mg/2 Ml Inj) 10 mg IV NOW ONE Stop: 04/22/24 15:42 Last Admin: 04/22/24 15:48 Dose: 10 mg Documented By: QUITA Ondansetron HCl (Ondansetron 4 Mg/2 Ml Inj) 4 mg IV NOW ONE Stop: 04/22/24 14:21 Last Admin: 04/22/24 14:27 Dose: 4 mg Documented By: QUITA Pantoprazole Sodium (Pantoprazole 40 Mg Vial) 40 mg IV NOW ONE Stop: 04/22/24 14:22 Last Admin: 04/22/24 14:27 Dose: 40 mg Documented By: QUITA Vital Signs Vital signs: Vital Signs - 8 hr 04/22/24 13:35 04/22/24 14:22 04/22/24 14:23 Temperature 97.7 F Pulse Rate 92 H 82 90 Respiratory Rate 18 Blood Pressure 173/100 H Pulse Oximetry 100 97 98 Oxygen Delivery Method Room Air 04/22/24 14:23 04/22/24 14:30 04/22/24 15:00 Temperature Pulse Rate 77 79 Respiratory Rate Blood Pressure 156/93 H Pulse Oximetry 97 99 Oxygen Delivery Method 04/22/24 15:30 04/22/24 15:54 04/22/24 15:54 Temperature Pulse Rate 64 96 H Respiratory Rate Blood Pressure 164/89 H Pulse Oximetry 97 100 Oxygen Delivery Method 04/22/24 16:00 04/22/24 16:30 04/22/24 16:58 Temperature Pulse Rate 72 69 Respiratory Rate Blood Pressure 155/78 H Pulse Oximetry 98 98 Oxygen Delivery Method 04/22/24 16:58 Temperature Pulse Rate 80 Respiratory Rate Blood Pressure Pulse Oximetry 100 Oxygen Delivery Method MDM - Nausea/Vomiting/Diarrhea Lab Data 04/22/24 13:49 04/22/24 13:49 Labs: Lab Results 04/22/24 Range/Units 13:49 WBC 11.2 H (4.5-11.0) X10^3/uL RBC 5.44 (4.5-5.9) X10^6/uL Hgb 16.8 (13.5-17.5) g/dL Hct 47.9 (41-53) % MCV 88.1 (80-100) fL MCH 30.8 (26-34) PG MCHC 35.0 (30-36) % RDW 13.1 (11.6-14.8) % Plt Count 346 (150-400) X10^3/uL Neut % (Auto) 76.4 H (50-75) % Lymph % (Auto) 15.0 L (25-40) % [place] % (Auto) 8.2 (3-14) % Eos % (Auto) 0.2 L (2-4) % Baso % (Auto) 0.2 (0-2) % Neut # (Auto) 8500 H (5852-6366) /uL Lymph # (Auto) 1700 (0764-2805) /uL [place] # (Auto) 900 (0-900) /uL Eos # (Auto) 0 (0-450) /uL Baso # (Auto) 0 (0-100) /uL Sodium 132 L (137-145) mmol/L Potassium 3.3 L (3.4-5.1) mmol/L Chloride 95 L (98-107) mmol/L Carbon Dioxide 25 (22-32) mmol/L BUN 15 (9-20) mg/dL Creatinine 0.61 L (0.66-1.25) mg/dL Estimated GFR > 60 (>60) mL/min BUN/Creatinine Ratio 24.6 H (6-22) Glucose 148 H (70-100) mg/dL Lactate 1.6 (0.7-2.1) mmol/L Calcium 9.1 (8.4-10.2) mg/dL Total Bilirubin 2.3 H (0.2-1.3) mg/dL AST 28 (17-59) IU/L ALT 23 (<50) IU/L Alkaline Phosphatase 65 (38-126) U/L Total Protein 7.2 (6.3-8.2) g/dL Albumin 4.5 (3.5-5.0) g/dL Globulin 2.7 (1.7-4.1) g/dL Albumin/Globulin Ratio 1.7 (1.0-2.8) Lipase 53 D (23-300) U/L MDM Narrative Medical decision making narrative: Patient is a 58 year male with poorly controlled diabetes presenting to day with chronic abdominal pain. He has no evidence of DKA, anion gap 12 glucose is 148. .He has a normal lactate He was have an elevated bilirubin of 2.3 has been as high as 1.9, AST ALT within normal limits At this time patient has had significant abdominal imaging this week including an MRI and abdominal CT. We talked about marijuana use and cyclic vomiting syndrome he reports that he has not used marijuana in a number of years and often does not help him with his nausea. At this time he still feels nauseous but is no longer dry heaving and still having some pain In the ED he has been given 2 L of IV fluids Reglan, Dilaudid Protonix, Zofran Overall after the Dilaudid and Reglan he is able to keep down water feels significantly better feels like he is ready able to go home. At this time he does not need any further imaging he has a mild elevation of bilirubin today but this is not significantly abnormal for him. Discharge Plan Departure Patient Disposition: Home Clinical Impression: Nausea & vomiting Instructions: DI for Vomiting -- Adult Activity Restrictions/Additional Instructions: *You have been diagnosed with nausea vomiting *What to do: At this time increase fluids as tolerated please follow-up with your providers *Continue to take medications as directed Reglan 10 mg every 6 hours for nausea or vomiting *Follow up with your primary care provider in 2-3 days or call [phone] *Return to ER if you should have persistent vomiting abdominal pain or any new, worsening or concerning symptoms Prescriptions: New metoclopramide HCl [Reglan] 10 mg tablet 10 mg PO Q6H PRN (Reason: nausea and vomiting) Qty: 20 0RF No Action (DME) pen needle, diabetic [Comfort EZ Pen [place]] 29 gauge x 1/2 needle See Rx Instructions .Route Qty: 100 11RF Rx Instructions: use to administer insulin up to 4 times a day metformin 1,000 mg tablet 1,000 mg PO BID Qty: 180 1RF lisinopril 2.5 mg tablet 2.5 mg PO DAILY Qty: 90 3RF (DME) lancets 28 gauge misc See Rx Instructions .ROUTE .MEDSUPPLY Qty: 100 3RF Rx Instructions: As directed, once daily as neededd (DME) insulin syr/ndl U100 half talia 0.3 mL 29 gauge x 1/2 syringe See Rx Instructions .ROUTE .MEDSUPPLY Qty: 100 3RF Rx Instructions: inject insulin daily, As directed insulin glargine-yfgn [Semglee(insulin glarg-yfgn)Pen] 100 unit/mL (3 mL) insulin pen 20 unit SUBCUT DAILY Qty: 15 3RF Rx Instructions: 20 units nightly glipizide 10 mg tablet extended release 24hr 10 mg PO DAILY Qty: 90 3RF (DME) blood-glucose meter Misc See Rx Instructions .ROUTE .MEDSUPPLY Qty: 1 0RF Rx Instructions: As directed, once daily as needed (DME) Advocate Test Strips Strip See Rx Instructions .ROUTE .MEDSUPPLY Qty: 100 3RF Rx Instructions: As directed, once daily as needed atorvastatin 40 mg tablet 40 mg PO DAILY Qty: 90 3RF pioglitazone 15 mg tablet 15 mg PO DAILY Qty: 90 3RF tramadol 50 mg tablet 50 mg PO Q6H PRN (Reason: pain) Qty: 120 5RF Rx Instructions: to last 30 days pregabalin [Lyrica] 150 mg capsule 150 mg PO BID Qty: 60 5RF ondansetron 4 mg tablet,disintegrating 4 mg PO Q8H PRN (Reason: nausea and vomiting) Qty: 20 0RF Referrals: Andrés Maravilla DO [Primary Care Provider] - Stand Alone Forms: Patient Portal/API/Survey
[2024-04-22] MEDS: METOCLOPRAMIDE 10 MG/2 ML INJ IV (15:48)
[2024-04-22] MEDS: HYDROMORPHONE 0.5 MG INJ IV (15:48)
[2024-04-22 16:01] LABS: Lipase 53 U/L (23-300)
== END 2024-04-22 17:30 | disposition home or self-care (01) ==
PROVIDERS: Emergency Provider Emergency Medicine; PCP Family Medicine
DX: R11.2 Nausea with vomiting, unspecified (principal); E11.40 Type 2 diabetes mellitus with diabetic neuropathy, unspecified; Z79.4 Long term (current) use of insulin
CPT/HCPCS: 36415; 80053; 83605; 83690; 85025; 96361; 96374; 96375; 99284; J1171; J2405; J2470; J2765

== ENCOUNTER → 2024-05-26 15:41 | Outpatient (CLI) | payer OTHER, SELFPAY ==
[2024-05-26 17:09] LABS: Procalcitonin 0.037 ng/mL (<0.5)
[2024-05-26 17:23] LABS: Cortisol Random 5.38 ug/dL
[2024-05-29 07:36] LABS: Calcium 9.6 mg/dL (8.7-10.2); Parathyroid Hormone, Intact 33 pg/mL (15-65)
[2024-05-29 13:36] LABS: Growth Hormone 0.3 ng/mL (0.0-10.0)
== END ==
LOC: LAB 15:45
PROVIDERS: PCP Family Medicine
DX: G62.9 Polyneuropathy, unspecified (principal); G08 Intracranial and intraspinal phlebitis and thrombophlebitis; Q85.00 Neurofibromatosis, unspecified
CPT/HCPCS: 36415; 82310; 82533; 82550; 82552; 83970; 84145; 86038; 86277; 86341

== ENCOUNTER 2024-06-27 16:21 | Emergency (ER) | payer OTHER, SELFPAY ==
[2024-06-27] VITALS (16 sets, daily range): BP systolic 134–191; BP diastolic 72–100; PULSE 103–126; RESP 18–24; TEMP 36.8; O2SAT 95–99; BMI 27.1
--- NOTE | 2024-06-27 16:42 | EKG_ITS ---
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
[2024-06-27 17:03] LABS: Add Manual Diff / Slide Review NO; Basophils Absolute Auto 0 /uL (0-100); Basophils Percent Auto 0.2 % (0-2); Eosinophils Absolute Auto 0 /uL (0-450); Hematocrit 49.1 % (41-53); Hemoglobin 16.8 g/dL (13.5-17.5); Lymphocytes Absolute Auto 1300 /uL (1100-4500); Mean Corpuscular HGB Conc 34.3 % (30-36); Mean Corpuscular Hemoglobin 30.7 PG (26-34); Mean Corpuscular Volume 89.4 fL (80-100); Monocytes Absolute Auto 1400 /uL (0-900); Monocytes Percent Auto 8.7 % (3-14); Neutrophils Absolute Auto 13100 /uL (1500-7000); Neutrophils Percent Auto 83.1 % (50-75); Platelet Count 375 X10^3/uL (150-400); Red Blood Cell Count 5.49 X10^6/uL (4.5-5.9); Red Cell Distribution Width 13.2 % (11.6-14.8); White Blood Cell Count 15.8 X10^3/uL (4.5-11.0)
[2024-06-27] MEDS: ONDANSETRON 4 MG/2 ML INJ IV (17:09)
[2024-06-27] MEDS: SODIUM CHLORIDE 0.9% 1,000 ML 1000 ML IV ×2 (17:09→20:08)
[2024-06-27 17:11] LABS: Prothrombin Time 11.4 SECONDS (9.4-12.5)
[2024-06-27 17:13] LABS: PTT Partial Thromboplastin Tim 27 SECONDS (25.1-36.5)
[2024-06-27 17:29] LABS: Alanine Aminotransferase 36 IU/L (<50); Albumin 4.9 g/dL (3.5-5.0); Albumin Globulin Ratio 1.6 (1.0-2.8); Alkaline Phosphatase 67 U/L (38-126); Aspartate Aminotransferase 34 IU/L (17-59); BUN Creatinine Ratio 43.1 (6-22); Bilirubin Total 1.8 mg/dL (0.2-1.3); Blood Urea Nitrogen 31 mg/dL (9-20); Calcium 9.9 mg/dL (8.4-10.2); Carbon Dioxide 21 mmol/L (22-32); Chloride 91 mmol/L (98-107); Creatine Kinase 165 U/L (55-170); Estimated Glomerular Filt Rate > 60 mL/min (>60); Ethanol (ETOH) < 10 mg/dL; Globulin 3.1 g/dL (1.7-4.1); Glucose 252 mg/dL (70-100); HEMOLYSIS 20 (0-50); Lipase 34 U/L (23-300); Magnesium 1.6 mg/dL (1.6-2.3); Potassium 3.8 mmol/L (3.4-5.1); Sodium 130 mmol/L (137-145)
[2024-06-27 17:44] LABS: NT-proBNP (BNP-Adult 18+) 248 pg/mL (<125); Troponin I < 0.012 ng/mL (0.01-0.034)
[2024-06-27 18:30] LABS: Appearance Urine UA CLEAR; Bilirubin Urine UA NEGATIVE (NEGATIVE); Color Urine UA YELLOW; Glucose Urine UA 1+ g/dL (Negative); Ketones Urine UA 2+ (NEGATIVE); Leukocyte Esterase Urine UA NEGATIVE (NEGATIVE); Nitrite Urine UA NEGATIVE (Negative); Occult Blood Urine UA NEGATIVE (Negative); Protein Urine UA TRACE (Negative); Specific Gravity Urine UA 1.025 (1.000-1.035); Urobilinogen Urine UA 0.2 E.U./dL (0.2)
[2024-06-27 18:35] LABS: UR Morphine/Opiate cutoff 300 Negative (Negative); Ur Creatinine Normal (Normal); Ur Specific Gravity Normal (Normal); Urine Amphetamines Negative (Negative); Urine Barbiturates Negative (Negative); Urine Benzodiazepines Negative (Negative); Urine Cocaine Negative (Negative); Urine MDMA Negative (Negative); Urine Methadone Negative (Negative); Urine Methamphetamines Negative (Negative); Urine Oxycodone Negative (Negative); Urine Phencyclidine Negative (Negative); Urine Tetrahydrocannabinol Positive (Negative); Urine Tricyclic Antidepressant Negative (Negative); Urine pH Normal (Normal)
[2024-06-27 18:45] LABS: Bacteria Urine None Seen; Culture Indicated Urine Cult Not Indicated; Mucus Urine 2+ (Negative); RBC Urine None Seen (0-5/HPF); Squamous Epithelial Cell Urine 0-1 /HPF (0-5/HPF); Urine Volume 10mL (spun); WBC Urine None Seen (0-5/HPF)
[2024-06-27 18:47] LABS: Ictotest Urine Negative (Negative)
--- NOTE | 2024-06-27 19:06 | ED.GENADULT ---
HPI - General Adult General Chief complaint: Diabetic Problem Stated complaint: diabetic issues Time Seen by Provider: 06/27/24 19:06 Source: patient Mode of arrival: Ambulatory History of Present Illness HPI narrative: 58-year-old male with a past medical history of diabetes hyper lipidemia hypertension, peripheral neuropathy, chronic abdominal pain comes into the ED from home for evaluation of possible diabetic issues, he states that he has diabetes and has had persistent nausea and vomiting has been able to tolerate his medications states that he would like some of his medications here as well as symptomatic relief. He denies any other symptoms such as headache visual disturbances chest pain shortness breath fever chills or any other GI/ symptoms at this time. Related Data Previous Rx's Medication Instructions Recorded atorvastatin 40 mg tablet 40 mg PO DAILY cholesterol #90 tabs 11/25/23 blood sugar diagnostic #100 ea 11/25/23 blood-glucose meter #1 ea 11/25/23 glipizide 10 mg tablet, extended 10 mg PO DAILY #90 tabs 11/25/23 release 24 hr insulin glargine-yfgn 100 unit/mL 20 unit (0.2 mL) SUBCUT DAILY #15 11/25/23 (3 mL) subcutaneous pen (Semglee mL (insulin glargine-yfgn) Pen) insulin syr/ndl U100 half [place]ia 0.3 #100 ea 11/25/23 mL 29 gauge x 1/2 lancets 28 gauge #100 ea 11/25/23 lisinopril 2.5 mg tablet 2.5 mg PO DAILY #90 tabs 11/25/23 metformin 1,000 mg tablet 1,000 mg PO BID #180 tabs 11/25/23 pen needle, diabetic 29 gauge x #100 ea 11/25/23 1/2 (Comfort EZ Pen [place]) pregabalin 150 mg capsule (Lyrica) 150 mg PO BID #60 caps 02/15/24 tramadol 50 mg tablet 50 mg PO Q6H PRN pain #120 tabs 02/15/24 pioglitazone 15 mg tablet 15 mg PO DAILY for diabetes 02/29/24 mellitus #90 tabs ondansetron 4 mg disintegrating 4 mg PO Q8H PRN nausea and 04/20/24 tablet vomiting #20 tabs metoclopramide HCl 10 mg tablet 10 mg PO Q6H PRN nausea and 01/24/25 (Reglan) vomiting #20 tabs Allergies Allergy/AdvReac Type Severity Reaction Status Date / Time No Known Drug Allergies Allergy Verified 04/20/24 10:28 Patient History Medical History Diabetic retinopathy Peripheral autonomic neuropathy due to DM Hyperlipidemia Type 2 diabetes mellitus with hyperglycemia, without long-term current use of insulin Social History household members: none alcohol intake: never tobacco type: vaping Exam Initial Vital Signs Initial Vital Signs: Vital Signs Temperature 98.3 F 06/27/24 16:35 Pulse Rate 121 H 06/27/24 16:35 Respiratory Rate 18 06/27/24 16:35 Blood Pressure 166/90 H 06/27/24 16:35 Pulse Oximetry 98 06/27/24 16:35 Oxygen Delivery Method Room Air 06/27/24 16:35 Course Orders Ordered: ED Orders 06/27/24 16:42 EKG-12 Lead Stat 06/27/24 16:50 Complete Blood Count AUTO DIFF Stat Comprehensive Metabolic Panel Stat Ethanol (ETOH) Stat Ketones (Beta-Hydroxybutyrate) Stat Lipase Stat Magnesium Stat NT-proBNP (BNP-Adult 18+) Stat PTT Partial Thromboplastin Ham Stat Prothrombin Time INR Stat Troponin & CK Cardiac Panel Stat 06/27/24 18:22 Ictotest Urine Stat Urinalysis and Microscopic Stat Urine Drug Screen, Rapid Stat Ondansetron HCl (Ondansetron 4 Mg/2 Ml Inj) 4 mg IV NOW PRN PRN Reason: Nausea And Vomiting Last Admin: 06/27/24 17:09 Dose: 4 mg Documented By: KAYLEE Ondansetron HCl (Ondansetron 4 Mg Odt) 4 mg SL NOW PRN PRN Reason: Nausea And Vomiting Discontinued Medications Diphenhydramine HCl (Diphenhydramine 50 Mg/Ml Vial) 25 mg IV NOW ONE Stop: 06/27/24 19:39 Last Admin: 06/27/24 20:08 Dose: 25 mg Documented By: Sodium Chloride (Normal Saline 0.9%) 1,000 mls @ 1,000 mls/hr IV BOLUS ONE Stop: 06/27/24 17:59 Last Infusion: 06/27/24 18:15 Dose: Infused Documented By: Admin: 06/27/24 17:09 Dose: 1,000 mls/hr Documented By: KAYLEE Sodium Chloride (Normal Saline 0.9%) 1,000 mls @ 1,000 mls/hr IV BOLUS ONE Stop: 06/27/24 20:37 Last Infusion: 06/27/24 20:51 Dose: Infused Documented By: Admin: 06/27/24 20:08 Dose: 1,000 mls/hr Documented By: Metoclopramide HCl (Metoclopramide 10 Mg/2 Ml Inj) 10 mg IV NOW ONE Stop: 06/27/24 19:39 Last Admin: 06/27/24 20:10 Dose: 10 mg Documented By: Tramadol HCl (Tramadol 50 Mg Tablet) 50 mg PO NOW ONE Stop: 06/27/24 19:39 Last Admin: 06/27/24 20:11 Dose: 50 mg Documented By: Vital Signs Vital signs: Vital Signs - 8 hr 06/27/24 16:35 Temperature 98.3 F Pulse Rate 121 H Respiratory Rate 18 Blood Pressure 166/90 H Pulse Oximetry 98 Oxygen Delivery Method Room Air Medical Decision Making Differential Diagnosis Differential Diagnosis: Electrolyte abnormality, DKA, hyperglycemia, chronic abdominal pain Lab Data 06/27/24 16:50 06/27/24 16:50 Labs: Lab Results 06/27/24 06/27/24 06/27/24 Range/Units 16:50 18:22 18:22 WBC 15.8 H (4.5-11.0) X10^3/uL RBC 5.49 (4.5-5.9) X10^6/uL Hgb 16.8 (13.5-17.5) g/dL Hct 49.1 (41-53) % MCV 89.4 (80-100) fL MCH 30.7 (26-34) PG MCHC 34.3 (30-36) % RDW 13.2 (11.6-14.8) % Plt Count 375 (150-400) X10^3/uL Neut % (Auto) 83.1 H (50-75) % Lymph % (Auto) 8.0 L (25-40) % [place] % (Auto) 8.7 (3-14) % Eos % (Auto) 0.0 L (2-4) % Baso % (Auto) 0.2 (0-2) % Neut # (Auto) 96245 H (9468-9966) /uL Lymph # (Auto) 1300 (0432-4103) /uL [place] # (Auto) 1400 H (0-900) /uL Eos # (Auto) 0 (0-450) /uL Baso # (Auto) 0 (0-100) /uL PT 11.4 (9.4-12.5) SECONDS INR 1.0 (0.9-1.3) APTT 27 (25.1-36.5) SECONDS Sodium 130 L (137-145) mmol/L Potassium 3.8 (3.4-5.1) mmol/L Chloride 91 L (98-107) mmol/L Carbon Dioxide 21 L (22-32) mmol/L BUN 31 H (9-20) mg/dL Creatinine 0.72 (0.66-1.25) mg/dL Estimated GFR > 60 (>60) mL/min BUN/Creatinine Ratio 43.1 H (6-22) Glucose 252 H (70-100) mg/dL Calcium 9.9 (8.4-10.2) mg/dL Magnesium 1.6 (1.6-2.3) mg/dL Total Bilirubin 1.8 H (0.2-1.3) mg/dL AST 34 (17-59) IU/L ALT 36 (<50) IU/L Alkaline Phosphatase 67 (38-126) U/L Total Creatine Kinase 165 (55-170) U/L Troponin I < 0.012 (0.01-0.034) ng/mL NT-Pro-B Natriuret Pep 248 H (<125) pg/mL Total Protein 8.0 (6.3-8.2) g/dL Albumin 4.9 (3.5-5.0) g/dL Globulin 3.1 (1.7-4.1) g/dL Albumin/Globulin Ratio 1.6 (1.0-2.8) Lipase 34 (23-300) U/L Urine Color Yellow Urine Appearance Clear Urine pH 6.0 Normal (4.5-8.0) Ur Specific [place] 1.025 (1.000-1.035) Urine Protein Trace H (Negative) Urine Glucose (UA) 1+ H (Negative) g/dL Urine Ketones 2+ H (NEGATIVE) Urine Occult Blood Negative (Negative) Urine Nitrate Negative (Negative) Urine Bilirubin Negative (NEGATIVE) Ur Bilirubin Confirm Negative (Negative) Urine Urobilinogen 0.2 (0.2) E.U./dL Ur Leukocyte Esterase Negative (NEGATIVE) Urine RBC None seen (0-5/HPF) Urine WBC None seen (0-5/HPF) Ur Squamous Epith Cells 0-1 /hpf (0-5/HPF) Urine Bacteria None seen (None) Urine Mucus 2+ H (Negative) Ur Culture Indicated? Cult not indicated Vol Urine Centrifuged 10ml (spun) U Opiates 300ng/mL cut Negative (Negative) Ur Oxycodone Screen Negative (Negative) Urine Methadone Screen Negative (Negative) Ur Barbiturates Screen Negative (Negative) U Tricyclic Antidepress Negative (Negative) Ur Phencyclidine Scrn Negative (Negative) Ur Amphetamines Screen Negative (Negative) U Methamphetamines Scrn Negative (Negative) Ur MDMA Scrn (Ecstasy) Negative (Negative) U Benzodiazepines Scrn Negative (Negative) Urine Cocaine Screen Negative (Negative) U Marijuana (THC) Screen Positive H (Negative) Urine Specific [place] Normal (Normal) Ethyl Alcohol < 10 ( - 10) mg/dL Ketones 0.50 H (<0.27) mmol/L Ur Creatinine Normal (Normal) Point of Care Testing Glucose POC 242 Urine Dip Bedside Urine Glucose 250 mg/dl Bedside Urine Bilirubin + 1 Bedside Urine Ketone +++ 80 Urine Specific [place] 1.025 Bedside Urine Occult Blood - Negative Bedside Urine pH 6.0 Bedside Urine Protein + 30 Bedside Urine Urobilinogen - Negative Bedside Urine Nitrite - Negative Bedside Urine Leukocytes - Negative Esterase Point of care testing: Point of Care Testing Glucose POC 242 Urine Dip Bedside Urine Glucose 250 mg/dl Bedside Urine Bilirubin + 1 Bedside Urine Ketone +++ 80 Urine Specific [place] 1.025 Bedside Urine Occult Blood - Negative Bedside Urine pH 6.0 Bedside Urine Protein + 30 Bedside Urine Urobilinogen - Negative Bedside Urine Nitrite - Negative Bedside Urine Leukocytes - Negative Esterase ECG Data Interpretation: EKG interpreted ED physician sinus tachycardia 122 beats per minute normal axis nonspecific ST changes no STEMI MDM Narrative Medical decision making narrative: 58-year-old male with a history of uncontrolled diabetes peripheral neuropathy chronic abdominal pain presents to the emergency department for issues with his sugars. He states that he has been having nausea and vomiting and is worried that he can not take his medications secondary to his symptoms. Here in the emergency department patient patient with glucose of 252, no anion gap, troponin negative, EKG nonischemic in nature, urinalysis not consistent with acute urinary tract infection. Patient had fluids, Reglan, and passed p.o. challenge. Patient has a buprenorphine patch therefore I informed him that we can not give him any of the Dilaudid that he is requesting. He states he understands states that he was happy enough to be able to tolerate the tramadol that he is normally prescribed. He was given strict return precautions he verbalized understanding of this and agrees to being discharged home with follow up Discharge Plan Departure Patient Disposition: Home Clinical Impression: Nausea & vomiting Activity Restrictions/Additional Instructions: Please follow up with your neurologist and your primary care doctor for your scheduled appointments Please read the discharge instructions sheet carefully and bring all papers to all doctor follow-up visits, as it may contain information that your doctor may want to see. Disease processes change and evolve, if your symptoms worsen or if you develop any new symptoms that are concerning to you please return for evaluation. Your evaluation today does not show any evidence of any life-threatening/serious illnesses requiring admission to the hospital or surgery. Please follow-up with your doctor for re-evaluation in approximately 1 day. Seek immediate medical attention for any worrisome symptoms. *If you do not have a primary care provider please contact the [facility] Resource line at [phone]. They will ask some questions about your medical history and help get you set up with a doctor in the community. Prescriptions: No Action (DME) pen needle, diabetic [Comfort EZ Pen [place]] 29 gauge x 1/2 needle See Rx Instructions .Route Qty: 100 11RF Rx Instructions: use to administer insulin up to 4 times a day metformin 1,000 mg tablet 1,000 mg PO BID Qty: 180 1RF lisinopril 2.5 mg tablet 2.5 mg PO DAILY Qty: 90 3RF (DME) lancets 28 gauge misc See Rx Instructions .ROUTE .MEDSUPPLY Qty: 100 3RF Rx Instructions: As directed, once daily as neededd (DME) insulin syr/ndl U100 half [place] 0.3 mL 29 gauge x 1/2 syringe See Rx Instructions .ROUTE .MEDSUPPLY Qty: 100 3RF Rx Instructions: inject insulin daily, As directed insulin glargine-yfgn [Semglee(insulin glarg-yfgn)Pen] 100 unit/mL (3 mL) insulin pen 20 unit SUBCUT DAILY Qty: 15 3RF Rx Instructions: 20 units nightly glipizide 10 mg tablet extended release 24hr 10 mg PO DAILY Qty: 90 3RF (DME) blood-glucose meter Misc See Rx Instructions .ROUTE .MEDSUPPLY Qty: 1 0RF Rx Instructions: As directed, once daily as needed (DME) Advocate Test Strips Strip See Rx Instructions .ROUTE .MEDSUPPLY Qty: 100 3RF Rx Instructions: As directed, once daily as needed atorvastatin 40 mg tablet 40 mg PO DAILY Qty: 90 3RF pioglitazone 15 mg tablet 15 mg PO DAILY Qty: 90 3RF tramadol 50 mg tablet 50 mg PO Q6H PRN (Reason: pain) Qty: 120 5RF Rx Instructions: to last 30 days pregabalin [Lyrica] 150 mg capsule 150 mg PO BID Qty: 60 5RF metoclopramide HCl [Reglan] 10 mg tablet 10 mg PO Q6H PRN (Reason: nausea and vomiting) Qty: 20 0RF ondansetron 4 mg tablet,disintegrating 4 mg PO Q8H PRN (Reason: nausea and vomiting) Qty: 20 0RF Referrals: Andrés Maravilla DO [Primary Care Provider] - Stand Alone Forms: Patient Portal/API/Survey
[2024-06-27] MEDS: diphenhydrAMINE 50 MG/ML VIAL 25 MG IV (20:08)
[2024-06-27] MEDS: METOCLOPRAMIDE 10 MG/2 ML INJ IV (20:10)
[2024-06-27] MEDS: TRAMADOL 50 MG TABLET PO (20:11)
== END 2024-06-27 21:17 | disposition home or self-care (01) ==
PROVIDERS: Emergency Medicine; Emergency Provider Student in an Organized Health Care Education/Training Program; PCP Family Medicine
DX: R11.2 Nausea with vomiting, unspecified (principal); R00.0 Tachycardia, unspecified
CPT/HCPCS: 36415; 80053; 80305; 80320; 81001; 81003; 82009; 82550; 82962; 83690; 83735; 83880; 84484; 85025; 85610; 85730; 93005; 96361; 96374; 96375; 99284; J1200; J2405; J2765

== ENCOUNTER → 2024-07-09 14:22 | Outpatient (CLI) | payer OTHER, SELFPAY ==
--- NOTE | 2024-07-09 14:25 | DI.MRI.S_ITS ---
PROCEDURE: MR THORACIC SPINE WO/W CON INDICATIONS: PARESTHESIAS,HYPERFLEXIA, TECHNIQUE: Noncontrast sagittal T1 spin echo and T2 fast spin echo, sagittal STIR, axial T1 and T2 fast spin echo through the thoracic spine. After the administration of contrast, axial and sagittal T1 spin echo with fat saturation through the thoracic spine. COMPARISON: [facility], MR, MR CERVICAL SPINE WO/W CON, 07/09/2024, 14:46. FINDINGS: Image quality: This examination is limited by involuntary motion artifact. Alignment and curvature: There is normal bony alignment. Marrow: Marrow is of normal overall signal. Scattered foci are seen, which are hyperintense on T1-weighted and T2-weighted imaging, which are most consistent with benign vertebral body hemangiomas. No acute vertebral body compression fractures. Spinal cord: Visualized spinal cord is of normal signal and size, without abnormal enhancement. Paraspinous soft tissues: No paravertebral masses or abnormal enhancement. Miscellaneous: Generalized degenerative changes are seen, with several levels of mild disc space narrowing, with multiple levels of bridging anterior osteophytes. At the T6-T7 level, there is a mild central disc protrusion, with minimal central canal narrowing and minimal mass effect upon the ventral spinal cord. No significant neural foraminal narrowing is seen. Several levels of [id number] neural foraminal narrowing can be seen within the mid to lower thoracic spine. IMPRESSION: No imaging explanation is found for this patient's presenting symptoms. Mild overall degenerative changes can be seen, including a mild central disc protrusion at T6-T7. No abnormal cord signal can be seen. No abnormal enhancement is seen. Dictated by: José Manuel Robbins M.D. on 07/11/2024 at 12:48 Approved by: José Manuel Robbins M.D. on 07/11/2024 at 12:51
--- NOTE | 2024-07-09 14:25 | DI.MRI.S_ITS ---
PROCEDURE: MR CERVICAL SPINE WO/W CON INDICATIONS: PARESTHESIAS,HYPERFLEXIA, TECHNIQUE: Noncontrast sagittal T1 spin echo and T2 fast spin echo, sagittal STIR, foraminal oblique sagittal T2 fast spin echo, axial gradient echo or T2 fast spin echo through the cervical spine. After the administration of contrast, axial and sagittal T1 spin echo with fat saturation through the cervical spine. COMPARISON: [facility], MR, MR THORACIC SPINE WO/W CON, 07/09/2024, 14:46. FINDINGS: Image quality: Excellent. Alignment and curvature: There is normal bony alignment. Marrow: Marrow is normal in overall signal, without suspicious enhancement. Spinal cord: Visualized spinal cord has normal size and signal. No cerebellar tonsillar herniation. No abnormal intramedullary enhancement. Paraspinous soft tissues: No paravertebral masses or suspicious enhancement. C2-3: The disc height and disk signal are relatively well-preserved. Mild facet joint hypertrophy is seen. There is moderate to severe right-sided and mild left-sided neural foraminal narrowing. No central canal narrowing is seen. C3-4: The disc height and disk signal are relatively well-preserved. Mild to moderate disc osteophyte complex is seen. There is a superimposed central disc osteophyte protrusion. Mild to moderate facet hypertrophy can be seen. There is at least moderate bilateral neural foraminal narrowing seen. Minimal central canal narrowing is seen. C4-5: Moderate loss of disc height is seen. Loss of disc signal is seen. Moderate generalized disc osteophyte complex is seen. There is a superimposed central disc osteophyte protrusion. Moderate facet joint hypertrophy is seen. There is moderate to severe bilateral neural foraminal narrowing. Moderate central canal narrowing is seen. Minimal mass effect can be seen upon the ventral spinal cord. C5-6: Icaq-jo-sovfaayi loss of disc height and disc signal can be seen. Moderate generalized disc osteophyte complex is seen. There is a superimposed central disc osteophyte protrusion. Moderate facet joint hypertrophy is seen. There is moderate to severe bilateral neural foraminal narrowing seen. Mild to moderate central canal narrowing is seen. C6-7: The disc height and disk signal are relatively well-preserved. Mild to moderate disc osteophyte complex is seen, with a mild central disc osteophyte protrusion. Moderate facet joint hypertrophy is seen. There is mild right-sided and at least moderate left-sided neural foraminal narrowing. C7-T1: Normal appearance. IMPRESSION: No imaging explanation is found for this patient's presenting symptoms. Multiple levels of degenerative change can be seen, which are overall worst at the C4-C5 level. No abnormal enhancement is seen. Dictated by: José Manuel Robbins M.D. on 07/11/2024 at 12:51 Approved by: José Manuel Robbins M.D. on 07/11/2024 at 12:55
== END ==
PROVIDERS: PCP Family Medicine; Referring Provider Psychiatry & Neurology Neurology; Visit Provider Psychiatry & Neurology Neurology
DX: M47.812 Spondylosis without myelopathy or radiculopathy, cervical region (principal); M47.814 Spondylosis without myelopathy or radiculopathy, thoracic region; M51.24 Other intervertebral disc displacement, thoracic region; R20.2 Paresthesia of skin; R29.2 Abnormal reflex
CPT/HCPCS: 72156; 72157; A9579

== ENCOUNTER 2024-12-21 07:45 | Day surgery (SDC) | payer OTHER, SELFPAY ==
--- NOTE | 2024-12-21 | PATH_ITS ---
[facility] Accession Number: [id number] No. of containers..02 Tissue . 01 Material submitted: . PART A: stomach - GASTRIC PART B: stomach - GASTRIC POLYP . 01 Clinical history: . A) R/O H.PYLORI B) R/O ADENOMA . 01 Diagnosis: A. STOMACH, BIOPSY: Gastric antral mucosa with no diagnostic abnormality. No evidence of Helicobacter organisms on H/E stain. Negative for intestinal metaplasia. Negative for dysplasia or malignancy. . B. GASTRIC POLYP: Hyperplastic polyp. Negative for Helicobacter organisms by immunohistochemistry. Negative for intestinal metaplasia. Negative for dysplasia or malignancy. MRV 12/30/2024 1323 Local . 01 Electronically signed: . Bill Chang MD, PhD, Pathologist NPI- [id number] . 01 Gross description: . Received two formalin-filled containers, both labeled with the patient's name. . A. In a container labeled gastric are two fragments of trevino, soft tissue which range in size from less than 0.1 cm to 0.3 x 0.2 x 0.2 cm. All fragments are totally submitted in cassette A. B. In a container labeled gastric polyp are two fragments of trevino, soft tissue which range in size from less than 0.1 cm to 0.2 x 0.2 x 0.2 cm. All fragments are totally submitted in cassette B. ([facility] [place] [facility] [place]:[id number]) /MRV 12/24/2024 1802 Local . 01 Microscopic: . B. An immunohistochemical stain was performed to evaluate for Helicobacter organisms and is negative. The control stain showed appropriate reactivity. . * This test was developed and the performance characteristics were validated by [employer]. It has not been cleared or approved by the U.S. Food and Drug Administration. . 01 Pathologist provided ICD-10: K31.7 . 01 CPT . 412314, 866099, Y16706 Specimen Comment: A courtesy copy of this report has been sent to [phone] Performed at: [address] [id number] MD David Sweeney MD Phone: [phone]
[2024-12-21 08:02] VITALS: BP 123/90; PULSE 110; RESP 16; TEMP 36.5; O2SAT 96
[2024-12-21] MEDS: LACTATED RINGERS 1,000 ML 42 ML IV (08:20)
--- NOTE | 2024-12-21 08:48 | PM.HP.IH.1 ---
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 Instructions: Home Medication placed on hold at Doctor's office lancets 28 gauge #100 ea 11/25/23 09/01/24 Rx metformin 1,000 mg tablet 1,000 mg PO BID #180 tabs 11/25/23 12/21/24 Rx pen needle, diabetic 29 gauge x #100 ea 11/25/23 09/01/24 Rx 1/2 (Comfort EZ Pen [place]) atorvastatin 40 mg tablet 40 mg PO DAILY cholesterol #90 tabs 07/12/24 09/01/24 Rx lisinopril 2.5 mg tablet 2.5 mg PO DAILY #90 tabs 07/12/24 12/21/24 Rx pioglitazone 15 mg tablet 15 mg PO DAILY for diabetes 07/12/24 12/21/24 Rx mellitus #90 tabs glipizide 10 mg tablet, extended 10 mg PO DAILY #90 tabs 09/26/24 12/21/24 Rx release 24 hr peg 3350-electrolytes 236 240 ml PO Q10M #4,000 mL 11/21/24 Rx gram-22.74 gram-6.74 gram-5.86 gram solution (Golytely) insulin glargine-yfgn 100 unit/mL 20 unit (0.2 mL) SUBCUT DAILY #15 12/16/24 12/21/24 Rx (3 mL) subcutaneous pen (Semglee mL (insulin glargine-yfgn) Pen) Allergies Allergy/AdvReac Type Severity Reaction Status Date / Time No Known Drug Allergies Allergy Verified 12/21/24 07:57 Exam Vital Signs (past 8 hours): - 12/21/24 08:02 Temperature 97.7 F Pulse Rate 110 H Respiratory Rate 16 Blood Pressure 123/90 Pulse Oximetry 96 Oxygen Delivery Method Room Air Oxygen Delivery Method Room Air Narrative Exam Narrative: Oropharynx free of lesions Chest clear to auscultation percussion Cardiac exam reveals no S3 or murmur Objective Labs Labs: Laboratory Results - last 24 hr 12/21/24 08:12 POC Whole Bld Glucose 214 H Assessment & Plan Assessment & Plan narrative: History of recurrent nausea and vomiting of undigested foods in a diabetic. Need for EGD to rule out Helicobacter peptic disease etc.. Risks, benefits, alternatives have been explained. Time-Based Coding :: [TOTAL MINUTES] spent with patient and on the chart (including review of chart, obtaining history, exam, reviewing outside data, placing orders, documenting exam and treatment plan, and counseling patient) on [DATE]. 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
--- NOTE | 2024-12-21 08:50 | PM.OP.EGD ---
Operative Date/Time/Diagnoses Date of procedure: 12/21/24 Time of procedure: 09:10 Pre-op diagnosis: See indication and findings Post-op diagnosis: same Procedure & Clinicians Study performed: EGD Same procedure(s) as scheduled: Yes Indications: Nausea vomiting in a diabetic Surgeon: Rishi Garcia Anesthesia Type: Other Procedure Notes Procedure in detail: After informed consent was obtained the patient was placed in left lateral decubitus position. The video upper scope was placed into the oropharynx and with the patient's help swallowed into the esophagus. The esophagus stomach and duodenal were carefully examined. On withdrawal, retroflexed view the GE junction was performed. The scope was removed. The patient tolerated procedure well. Blood loss none Complications none Sedation mac Findings 1. Grade C esophagitis from 37 to 40 cm. Non confluent ulceration seen. 2. 5 cm hiatal hernia with the diaphragmatic hiatus at 45 cm 3. 5 mm bright red polyp in the fundus removed with 2 biopsies. 4. Patchy gastric erythema in the distal stomach biopsies taken to rule out Helicobacter Five. Normal duodenal bulb and sweep We will await biopsies. I do not see that the patient is on any proton pump inhibitors and I would suggest he get [id number] pantoprazole to use once a day 20 mg. Further escalation may be warranted. Once he has been on a stable dose with stable symptoms for 8-12 weeks we should repeat his upper endoscopy to make sure that his ulcerations have healed. He is already on metoclopramide and in general his symptoms are better since I have seen him 2 months ago.
[2024-12-21 09:06] VITALS: BP 134/82; PULSE 95; RESP 24; TEMP 36.3; O2SAT 93
[2024-12-21 09:10] VITALS: BP 125/81; PULSE 93; RESP 24; O2SAT 94
[2024-12-21 09:15] VITALS: BP 131/83; PULSE 93; RESP 20; TEMP 36.3; O2SAT 97
[2024-12-21 09:20] VITALS: BP 129/80; PULSE 91; RESP 16; O2SAT 94
[2024-12-21 09:40] VITALS: BP 143/89; PULSE 92; RESP 16; TEMP 36.3; O2SAT 99
== END 2024-12-21 09:45 | disposition home or self-care (01) ==
PROVIDERS: PCP Family Medicine; Referring Provider Internal Medicine Gastroenterology; Visit Provider Internal Medicine Gastroenterology
PROC: 0DJ08ZZ Inspection of Upper Intestinal Tract, Via Natural or Artificial Opening Endoscopic (ICD-10-PCS; CPT 43239; principal; 2024-12-21 08:30)
DX: R11.2 Nausea with vomiting, unspecified (principal); E11.9 Type 2 diabetes mellitus without complications; K20.90 Esophagitis, unspecified without bleeding; K44.9 Diaphragmatic hernia without obstruction or gangrene; Z79.4 Long term (current) use of insulin; Z79.84 Long term (current) use of oral hypoglycemic drugs; K31.7 Polyp of stomach and duodenum
CPT/HCPCS: 43239; 82962; J2405; J2704